=== PATIENT | male | born 1980 | race Caucasian/White ===

== ENCOUNTER 2017-05-07 13:58 | Emergency (ER) | payer MEDICAID ==
[~2017-05-07] VITALS: Ht 185.4 cm; Wt 81.6 kg
--- NOTE | 2017-05-07 14:02 | NUR ---
PT TO ER BED 16. C/O CHEST PAIN S/P TAKING METH. PT APPEARS ANXIOUS. GOWNED AND PLACED ON MONITOR. TACHY OTHERWISE STABLE VITALS. AWAITNIG MD PASCAL.
--- NOTE | 2017-05-07 14:57 | NUR ---
DR MONTEJO AT BEDSIDE FOR EVAL.
[2017-05-07] MEDS ORDERED: LORAZEPAM INJ 2 MG/ML VIAL IV ONE (15:00)
[2017-05-07] MEDS ORDERED: LORAZEPAM INJ 2 MG/ML VIAL ONE (15:17)
--- NOTE | 2017-05-07 15:20 | NUR ---
PT IS REFUSING IV START AND BLOOD DRAW. DR MONTEJO MADE AWARE. PT IS REQUESTING NITRO FOR CHEST PAIN. VERBAL ORDER FOR ATIVAN 2MG IM. CARRIED OUT.
[2017-05-07] MEDS ORDERED: LORAZEPAM INJ 2 MG/ML VIAL IM ONE (16:00)
--- NOTE | 2017-05-07 16:23 | NUR ---
GIOVANY was informed by Vita in ED that pt. is homeless and will require resources. GIOVANY met with pt. bedside. Pt. is alert and oriented x3. Pt. states he is homeless, however he is in process of obtaining [facility] housing voucher. GIOVANY gave pt. homeless resource directory which includes shelters, food jarrett, hot meals and showers, drug treatment programs, transitional housing etc. Pt. accepted resources. KORY Lozada was informed about pt. receiving resources.
--- NOTE | 2017-05-07 17:34 | NUR ---
Patient discharged to home in stable condition. Written and verbal after care instructions given. Patient verbalizes understanding of instruction.
[2017-05-07 17:35] VITALS: BP 136/77
== END 2017-05-07 17:35 | disposition home or self-care (01) ==
LOC: ER 14:01
DX: F15.10 Other stimulant abuse, uncomplicated (principal); F11.10 Opioid abuse, uncomplicated; F14.129 Cocaine abuse with intoxication, unspecified; F17.210 Nicotine dependence, cigarettes, uncomplicated; Z88.0 Allergy status to penicillin; Z88.1 Allergy status to other antibiotic agents
CPT/HCPCS: A4606; J2060; Z7610

== ENCOUNTER 2017-09-01 21:19 | Emergency (ER) | payer MEDICAID, OTHER ==
[~2017-09-01] VITALS: Ht 180.3 cm; Wt 83.5 kg
--- NOTE | 2017-09-01 21:29 | NUR ---
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 PT AOX3 RR EVEN AND UNLABORED. NO SOB NOTED. NAD NOTED. NO NVD AT THIS TIME. PT GOWNED AND PLACED ON MONITOR WAITING FOR MD PASCAL.
--- NOTE | 2017-09-01 22:03 | NUR ---
DR. PICKERING AT BEDSIDE FOR EVAL.
[2017-09-01] MEDS ORDERED: LORAZEPAM INJ 2 MG/ML VIAL IV ONE (22:30)
[2017-09-01] MEDS ORDERED: ASPIRIN 325 MG TABLET PO ONE (22:30)
--- NOTE | 2017-09-01 22:34 | NUR ---
RADIOLOGY AT BEDSIDE FOR XRAY
[2017-09-01] MEDS ORDERED: ASPIRIN 325 MG TABLET ONE (22:43)
[2017-09-01] MEDS ORDERED: LORAZEPAM INJ 2 MG/ML VIAL ONE (22:44)
[2017-09-01 23:02] LABS: BASOPHILS % (AUTO) 0.3 % (0.0-2.0); EOSINOPHILS # (AUTO) 0.2 /CMM (0.0-0.7); EOSINOPHILS % (AUTO) 1.7 % (0.0-6.0); HEMATOCRIT 38 % (39-51); HEMOGLOBIN 12.5 g/dL (13.5-17.5); LYMPHOCYTES # (AUTO) 1.5 /CMM (0.8-4.8); LYMPHOCYTES % (AUTO) 16.8 % (20.0-44.0); MEAN CORPUSCULAR HEMOGLOBIN 27 PG (26.0-33.0); MEAN CORPUSCULAR HGB CONC 33 g/dl (31.0-36.0); MEAN CORPUSCULAR VOLUME 82 fL (80-96); MONOCYTES # (AUTO) 0.9 /CMM (0.1-1.30); MONOCYTES % (AUTO) 9.2 % (2.0-12.0); NEUTROPHILS # (AUTO) 6.6 /CMM (1.8-8.9); PLATELET COUNT (AUTO) 325 /CMM (150-450); RDW COEFFICIENT OF VARIATION 14.8 (11.5-15.0); RED BLOOD CELL COUNT(AUTO) 4.67 MIL/uL (4.5-6.0); WHITE BLOOD COUNT (AUTO) 9.2 K/uL (4.3-11.0)
[2017-09-01 23:11] LABS: CALCIUM, SERUM 8.5 mg/dL (8.5-10.1); CARBON DIOXIDE 33 mmol/L (21-32); CHLORIDE 104 mmol/L (98-107); CREATININE 0.9 mg/dL (0.6-1.3); GLUCOSE 152 mg/dL (74-106); POTASSIUM 3.8 mmol/L (3.5-5.1); SODIUM SERUM 139 mmol/L (136-145); UREA NITROGEN, BLOOD 25 mg/dL (7-18)
[2017-09-01 23:19] LABS: TROPONIN I < 0.017 ng/mL (0.00-0.056)
[2017-09-01 23:23] LABS: INR 0.95 (0.87-1.13); PROTHROMBIN TIME 9.9 SECS (9.5-12.7)
--- NOTE | 2017-09-02 03:49 | NUR ---
PT TRANSFERRED TO ER BED 10. PT APPEARS COMFORTABLE.
--- NOTE | 2017-09-02 04:04 | NUR ---
Patient is resting comfortably in bed with eyes closed. Easily aroused. VSS
[2017-09-02 04:29] VITALS: BP 125/75
--- NOTE | 2017-09-02 04:29 | NUR ---
IV removed. Catheter intact and site benign. Pressure and 4x4 applied to site. No bleeding noted.
--- NOTE | 2017-09-02 04:29 | NUR ---
Patient discharged to home in stable condition. Written and verbal after care instructions given. Patient verbalizes understanding of instruction.
== END 2017-09-02 04:31 | disposition home or self-care (01) ==
LOC: ER 21:21
DX: R07.2 Precordial pain (principal); F19.10 Other psychoactive substance abuse, uncomplicated; F17.200 Nicotine dependence, unspecified, uncomplicated; F10.10 Alcohol abuse, uncomplicated; F11.10 Opioid abuse, uncomplicated; F12.10 Cannabis abuse, uncomplicated; Z88.0 Allergy status to penicillin; Z79.82 Long term (current) use of aspirin; Z88.1 Allergy status to other antibiotic agents
CPT/HCPCS: 36415; 71010-TC; 80048-TC; 84484-TC; 85025-TC; 85730-TC; A4606; J2060; Z7610

== ENCOUNTER 2017-12-05 19:24 | Inpatient (IN) | payer OTHER ==
[~2017-12-05] VITALS: Ht 185.4 cm; Wt 80.3 kg
--- NOTE | 2017-12-05 19:39 | NUR ---
PT BB SELF FROM STREETS C/O OF R ARM PAIN X1 DAY. PT STATES HE IS A HEROIN USER AND INJECTS HIMSELF WITH HEROIN. PT STATES LAST TIME USED WAS AT 1500. REDNESS/SWELLIING NOTED OF THE R FOREARM. R FOREARM SKIN HOT AND HARD TO TOUCH. PT IS AAOX4. RESP EVEN AND UNLABORED. NO S/S OF ACUTE DISTRESS NOTED. PT IS PLACED ON MONITOR AND POX. AWAITING MD FOR EVAL.
[2017-12-05] MEDS ORDERED: VANCOMYCIN 1 GM in IV D5W 250 ML IV ONE (20:00)
[2017-12-05] MEDS ORDERED: CEFEPIME 1 GM in IV D5W 50 ML IV ONE (20:00)
--- NOTE | 2017-12-05 20:02 | NUR ---
URINE SENT TO LAB
[2017-12-05] MEDS ORDERED: CEFEPIME 1 GM VIAL ONE (20:24)
[2017-12-05] MEDS ORDERED: VANCOMYCIN 1 GM VIAL ONE (20:24)
[2017-12-05 20:39] LABS: CALCIUM, SERUM 8.3 mg/dL (8.5-10.1); CREATININE 0.7 mg/dL (0.6-1.3); POTASSIUM 3.9 mmol/L (3.5-5.1)
[2017-12-05 20:42] LABS: INR 0.99 (0.85-1.15)
[2017-12-05 21:05] LABS: BASOPHILS % (AUTO) 0.1 % (0.0-2.0); HEMATOCRIT 31 % (39-51); HEMOGLOBIN 10.7 g/dL (13.5-17.5); LYMPHOCYTES # (AUTO) 1.4 /CMM (0.8-4.8); LYMPHOCYTES % (AUTO) 6.3 % (20.0-44.0); MEAN CORPUSCULAR HGB CONC 35 g/dl (31.0-36.0); MEAN CORPUSCULAR VOLUME 80 fL (80-96); MONOCYTES # (AUTO) 1.6 /CMM (0.1-1.30); MONOCYTES % (AUTO) 7.6 % (2.0-12.0); NEUTROPHILS # (AUTO) 18.4 /CMM (1.8-8.9); PLATELET COUNT (AUTO) 314 /CMM (150-450); RDW COEFFICIENT OF VARIATION 15.9 (11.5-15.0); RED BLOOD CELL COUNT(AUTO) 3.86 MIL/uL (4.5-6.0); WHITE BLOOD COUNT (AUTO) 21.7 K/uL (4.3-11.0)
[2017-12-05] MEDS ORDERED: IV NS 0.9% 1,000 ML BAG IV ONE (21:30)
--- NOTE | 2017-12-05 21:40 | NUR ---
REPORT GIVEN TO SHELL CALLAWAYELIA FOR BHUMIKA.
[2017-12-05] MEDS ORDERED: LIDOCAINE 1%-EPI 1:100,000 20 ML VIAL ONE (21:55)
--- NOTE | 2017-12-05 22:00 | NUR ---
CATHERINE HOUGH BEDSIDE FOR I&D PROCEDURE.
[2017-12-05 23:00] VITALS: BP 112/66
--- NOTE | 2017-12-05 23:00 | NUR ---
MS RN NOTES ADMITTED THIS 38 YO MALE FROM ER PER SHERRI A/O X4,AMBULATORY,WITH CHIEF COMPLAINTS OF SWELLING OF RIGHT ARM DUE TO HEROIN INJECTION,SALINE LOCK LEFT HAND INTACT AND PATENT.RIGHT ARM ABCESS SITE WITH PACKING NOTED.ELEVATED ON PILLOWS.TO INFUSE 2400MLOF SALINE ORDERED IN ER.CALL LIGHT IN REACH,NEEDS ANTICIPATED.
--- NOTE | 2017-12-05 23:15 | NUR ---
MS RN NOTES WENT TO SMOKE ACCOMPANIED BY MARKETING BUDGET ANALYST IMMACULATE.WAVER SIGNED BY PATIENT.
[2017-12-05] MEDS ORDERED: MAGNESIUM HYDROXIDE 30 ML UDC PO PRN (23:30)
[2017-12-05] MEDS ORDERED: ACETAMINOPHEN 325 MG TABLET PO PRN (23:30)
[2017-12-05] MEDS ORDERED: ZOLPIDEM TARTRATE 5 MG TABLET PO PRN (23:30)
[2017-12-05] MEDS ORDERED: ONDANSETRON HCL/PF 4 MG/2 ML VIAL IVP PRN (23:30)
--- NOTE | 2017-12-06 | NUR ---
MS RN NOTES STARTED ON LEVAQUIN 500MG IV ORDERED
[2017-12-06] MEDS ORDERED: LEVOFLOXACIN 500 MG /D5W 100ML 100 ML IV ONE (00:03)
[2017-12-06] MEDS: LEVOFLOXACIN 500 MG /D5W 100ML 500 MG in PREMIX 1 EA IV SCH (00:08)
--- NOTE | 2017-12-06 03:00 | NUR ---
MS RN NOTES IV SITE INFILTRATED.NEW SALINE LOCK PLACE ON LEFT WRIST #22,IV BOLUS IN PROGRESS.
[2017-12-06] MEDS ORDERED: VANCOMYCIN 1 GM in IV D5W 250 ML IV ONE (05:00)
[2017-12-06 06:43] LABS: BASOPHILS # (AUTO) 0.1 /CMM (0.0-0.2); BASOPHILS % (AUTO) 0.4 % (0.0-2.0); EOSINOPHILS % (AUTO) 1.6 % (0.0-6.0); HEMATOCRIT 28 % (39-51); HEMOGLOBIN 9.6 g/dL (13.5-17.5); LYMPHOCYTES # (AUTO) 1.3 /CMM (0.8-4.8); LYMPHOCYTES % (AUTO) 8.3 % (20.0-44.0); MEAN CORPUSCULAR HGB CONC 34 g/dl (31.0-36.0); MEAN CORPUSCULAR VOLUME 82 fL (80-96); MONOCYTES # (AUTO) 1.5 /CMM (0.1-1.30); MONOCYTES % (AUTO) 9.5 % (2.0-12.0); NEUTROPHILS # (AUTO) 12.8 /CMM (1.8-8.9); NEUTROPHILS % (AUTO) 80.2 % (43.0-81.0); PLATELET COUNT (AUTO) 269 /CMM (150-450); RDW COEFFICIENT OF VARIATION 15.9 (11.5-15.0); RED BLOOD CELL COUNT(AUTO) 3.47 MIL/uL (4.5-6.0)
[2017-12-06 06:49] LABS: ALBUMIN 2.3 g/dL (3.4-5.0); BILIRUBIN,TOTAL 0.4 mg/dL (0.2-1.0); CALCIUM, SERUM 8.7 mg/dL (8.5-10.1); MAGNESIUM 3.7 mg/dL (1.8-2.4); PHOSPHORUS 3.4 mg/dL (2.5-4.9); POTASSIUM 3.8 mmol/L (3.5-5.1); TOTAL PROTEIN, SERUM 5.4 g/dL (6.4-8.2)
[2017-12-06 07:00] LABS: CREATININE 0.6 mg/dL (0.6-1.3)
[2017-12-06 07:07] LABS: THYROID STIMULATING HORMONE 0.609 uIU/mL (0.358-3.74)
--- NOTE | 2017-12-06 07:16 | NUR ---
MS RN NOTES COMPLETED 2LITERS OF NS,INFUSING ANOTHER 400ML TO COMPLETE 2400ML ORDERED IN ER.SLEPT WELL,SNACKS PROVIDED.IN NO ACUTE DISTRESS.ENDORSE TO FABIAN,DAY SHIFT NURSE FOR BHUMIKA.
--- NOTE | 2017-12-06 07:21 | NUR ---
MS RN NOTES RECEIVED PATIENT ASLEEP IN BED, EASILY AWAKENS. ON ROOM AIR, BREATHING EVEN AND UNLABORED. IV ACCESS ON LEFT WRIST INTACT AND PATENT WITH IVF OF 400ML BOLUS OF NS INFUSING WELL, NO SIGNS OF INFILTRATION NOTED. HOB ELEVATED. BED LOCKED AND IN LOW POSITION. CALL LIGHT WITHIN REACH. WILL CONTINUE TO MONITOR.
[2017-12-06] MEDS ORDERED: FEE PK DOSING 1 MIN EA MC ONE (07:34)
[2017-12-06] MEDS ORDERED: HYDR-548 PO (07:51)
[2017-12-06] MEDS ORDERED: HYDR4TAB4 PO (07:51)
[2017-12-06 08:00] VITALS: BP 105/59
[2017-12-06] MEDS: IV NS 0.9% 1,000 ML IV PRN (08:07)
[2017-12-06] MEDS: VANCOMYCIN 1.25 GM in IV D5W 500 ML IV SCH ×2 (09:12→16:16)
--- NOTE | 2017-12-06 11:26 | NUR ---
RN NOTES PAUL REYNOLDS ASSESS AND EVALUATED PT'S ABSCESS ON RIGHT ARM, SAME DID DRESSING ON IT. WILL CONTINUE TO MONITOR.
--- NOTE | 2017-12-06 14:10 | NUR ---
Social service consult requested by gearcase assembler Dana for homelessness. Pt. is a 37 year old male who was admitted to [facility] for cellulitis. GIOVANY met with pt. bedside. Pt. is alert and oriented x 4. Pt. was pleasant and cooperative with SW during the assessment. Pt. states he has been homeless as of yesterday. Pt. was residing at the [facility] in [place]. Pt. receives approximately $1000/ month in [place] benefits. Pt. is unsure as to what prison or where he wants to go upon discharge. SW to offer pt. homeless resources etc prior to discharge. Pt. has a brother Juan Kumar who lives in [place] and who is his emergency contact . Pt. denies using alcohol but is a drug user. Pt. uses heroin and cocaine frequently. Pt. last used heroin and cocaine yesterday. Pt. has been using drugs for the past 5 to 6 years. Pt. states he suffers from PTSD. Pt. last attended a drug treatment program last year in [place], [place]. Pt. is currently on no medications at this time. Pt. denies suicidal and homicidal ideations and visual/auditory hallucinations at this time. No other social service needs are requested at this time. SW is available if needed. Addendum: 12/06/17 at 1424 by GEOVANNA ADAIR Pt. is a cigarette smoker. GIOVANY gave pt. the following resources: Homeless prison resources which included [facility] , [facility] , [facility] ([phone] etc; List of food resources, sober livings, list of mental health and medical clinics and drug treatment programs. Pt. will require bus tokens upon discharge. band manager Dana was updated regarding pt's discharge plan.
[2017-12-06 16:00] VITALS: BP 103/54
[2017-12-06] MEDS: HYDROMORPHONE INJ 2 MG/ML DISP.SYRIN IV PRN ×2 (17:27→21:33)
--- NOTE | 2017-12-06 17:31 | NUR ---
RN NOTES PT C/O BURNING AND SHARP PAIN ON HIS RIGHT ARM ABSCESS WITH INTENSITY OF 10/10, PRN DILAUDID 2MG IVP GIVEN. WILL CONTINUE TO MONITOR.
--- NOTE | 2017-12-06 18:32 | NUR ---
MS RN CLOSING NOTES PATIENT AWAKE AND RESTING AT MODERATE HIGH BACKREST POSITION WATCHING TV. A/O X 4. AMBULATORY AND VERBALLY RESPONSIVE. ON ROOM AIR, BREATHING EVEN AND UNLABORED. DRESSING ON RIGHT ARM INTACT, DRY AND CLEAN. RIGHT ARM KEPT ELEVATED WITH PILLOWS. IV ACCESS ON LEFT WRIST INTACT AND PATENT WITH IVF OF NS @ 75 ML/HR INFUSING WELL, NO SIGNS OF INFILTRATION NOTED. BED LOCKED AND IN LOW POSITION. CALL LIGHT AND BEDSIDE TABLE KEPT WITHIN PT REACH. ALL NEEDS AND CARE ATTENDED WELL. WILL CONTINUE TO MONITOR.
[2017-12-06 20:00] VITALS: BP 110/50
[2017-12-07] MEDS: LEVOFLOXACIN 500 MG /D5W 100ML 500 MG in PREMIX 1 EA IV SCH (00:28)
[2017-12-07] MEDS: HYDROCODONE/APAP 10/325MG 1 EA TABLET PO PRN (00:34)
--- NOTE | 2017-12-07 01:52 | NUR ---
MS2/RN PATIENT IS SLEEPING AT THIS TIME, EASILY AROUSABLE, APPEAR COMFORTABLE, NO SIGNS OF DISTRESS NOTED, CALL LIGHT IN REACH. WILL CONTINUE TO MONITOR.
[2017-12-07] MEDS: VANCOMYCIN 1.25 GM in IV D5W 500 ML IV SCH ×3 (02:09→16:21)
[2017-12-07] MEDS: HYDROMORPHONE INJ 2 MG/ML DISP.SYRIN IV PRN ×3 (05:10→16:22)
--- NOTE | 2017-12-07 07:04 | NUR ---
MS2/RN PATIENT IS SLEEPING, AROUSABLE, APPEAR COMFORTABLE, NO SIGNS OF DISTRESS NOTED, ALL NEEDS ATTENDED AT THIS TIME. ENDORSED.
--- NOTE | 2017-12-07 07:26 | NUR ---
MS RN OPENING NOTES RECEIVED PATIENT AWAKE, ALERT AND ORIENTED X4, SAME ABLE TO MAKE NEEDS KNOWN WITH NO C/O PAIN OR DISCOMFORTS AT THIS TIME. PT ON ROOM AIR, BREATHING EVEN AND UNLABORED. DRESSING ON RIGHT ARM INTACT, DRY AND CLEAN. REMINDED PT TO KEEP RIGHTB ARM ELEVATED WITH PILLOWS. IV ACCESS ON LEFT WRIST INTACT AND PATENT WITH IVF OF NS @ 75ML/HR INFUSING WELL, NO SIGNS OF INFILTRATION NOTED. HOB ELEVATED. BED LOCKED AND IN LOW POSITION. CALL LIGHT WITHIN REACH. WILL CONTINUE TO MONITOR.
[2017-12-07 08:00] VITALS: BP 103/65
--- NOTE | 2017-12-07 08:56 | NUR ---
RN NOTES FOLLOWED-UP ON LAB FOR VANCO TROUGH LEVEL AND SAID THAT IT WASN'T DRAWN YET. i SAID THAT IT'S SUPPOSED TO BE DRAWN AT 0700 AND PT HAS ABX VANCO IV AT 0800. CERAMIC PLATER SAID THAT SOMEBODY WILL COME AND DRAW THE BLOOD NOW.
[2017-12-07 09:54] LABS: CALCIUM, SERUM 8.4 mg/dL (8.5-10.1); CREATININE 0.7 mg/dL (0.6-1.3); POTASSIUM 3.7 mmol/L (3.5-5.1)
[2017-12-07] MEDS: IV NS 0.9% 1,000 ML IV PRN (11:34)
--- NOTE | 2017-12-07 11:55 | NUR ---
RN NOTES PATIENT WITH DRESSING INTACT, CLEAN AND DRY ON RIGHT ARM. REFUSED WOUND CARE TX THIS MORNING, HE SAID THAT HE WILL ASK THE NEXT SHIFT NURSE TO DO IT. WILL ENDORSED
[2017-12-07 13:13] LABS: BASOPHILS # (AUTO) 0.1 /CMM (0.0-0.2); BASOPHILS % (AUTO) 0.5 % (0.0-2.0); EOSINOPHILS % (AUTO) 2.8 % (0.0-6.0); HEMATOCRIT 33 % (39-51); HEMOGLOBIN 10.6 g/dL (13.5-17.5); LYMPHOCYTES # (AUTO) 1.3 /CMM (0.8-4.8); LYMPHOCYTES % (AUTO) 11.8 % (20.0-44.0); MEAN CORPUSCULAR HGB CONC 33 g/dl (31.0-36.0); MEAN CORPUSCULAR VOLUME 82 fL (80-96); MONOCYTES # (AUTO) 0.7 /CMM (0.1-1.30); MONOCYTES % (AUTO) 6.2 % (2.0-12.0); NEUTROPHILS # (AUTO) 8.9 /CMM (1.8-8.9); NEUTROPHILS % (AUTO) 78.7 % (43.0-81.0); PLATELET COUNT (AUTO) 171 /CMM (150-450); RDW COEFFICIENT OF VARIATION 16.2 (11.5-15.0); RED BLOOD CELL COUNT(AUTO) 3.96 MIL/uL (4.5-6.0); WHITE BLOOD COUNT (AUTO) 11.3 K/uL (4.3-11.0)
[2017-12-07 15:53] VITALS: BP 114/61
[2017-12-07] MEDS: LACTOBACILLUS RHAMNOSUS GG 1 EACH CAP.SPRINK PO SCH (16:21)
--- NOTE | 2017-12-07 19:20 | NUR ---
MS RN CLOSING NOTES PATIENT ASLEEP IN BED AT THIS TIME, AWAKENS EASILY. ALL NEEDS AND CARE ATTENDED WELL. PT TOLERATING ROOM AIR BREATHING WITH NO ACUTE RESPIRATORY DISTRESS NOTED. DRESSING ON RIGHT ARM INTACT, DRY AND CLEAN. RIGHT ARM KEPT ELEVATED WITH PILLOWS. IV ACCESS ON LEFT FA INTACT AND PATENT WITH IVF OF NS @ 75 ML/HR INFUSING WELL, NO SIGNS OF INFILTRATION NOTED. BED LOCKED AND IN LOW POSITION. CALL LIGHT AND BEDSIDE TABLE KEPT WITHIN PT REACH. ALL DUE MEDS GIVEN ORDERED AND TOLERATED. ALL NEEDS AND CARE ATTENDED WELL. ENDORSED TO OPERATIONS CHIEF NURSE TO CONTINUE CARE.
[2017-12-07 20:00] VITALS: BP 115/71
--- NOTE | 2017-12-07 20:10 | NUR ---
MS RN NOTES RECEIVED OUT OF THE ROOM,WENT DOWN TO SMOKE,SALINE LOCK LFA INTACT AND PATENT,NS AT 75ML/HR RATE INFUSING.RIGHT ARM REMAINS SWOLLEN,DRESSING INTACT AND DRY.AMBULATORY.CALL LIGHT IN REACH,NEEDS ANTICIPATED.
--- NOTE | 2017-12-07 21:00 | NUR ---
MS RN NOTES WENT DOWN TO SMOKE ACCOMPANIED BY ANDREA RAMOS.
--- NOTE | 2017-12-07 21:30 | NUR ---
MS RN NOTES TOOK SHOWER AFTER SMOKING,CLAIMED HE'S STINK
--- NOTE | 2017-12-07 22:00 | NUR ---
MS RN NOTES REFUSED IVF THIS TIME.CLAIMED HES BEEN EATING AND DRINKING A LOT
[2017-12-08] MEDS: VANCOMYCIN 1.25 GM in IV D5W 500 ML IV SCH ×2 (00:07→08:25)
--- NOTE | 2017-12-08 02:00 | NUR ---
MS RN NOTES IV INFILTRATED,NEW SALINE LOCK #22 PLACE ON THE RIGHT FOOT WITH ORDER.
[2017-12-08] MEDS: HYDROMORPHONE INJ 2 MG/ML DISP.SYRIN IV PRN (05:32)
--- NOTE | 2017-12-08 05:32 | NUR ---
MS RN NOTES PAIN MANAGEMENT C/O PAIN 10/10 ON RIGHT ARM.DILAUDID 2MG IVP GIVEN ORDERED FOR SEVERE PAIN
[2017-12-08 06:18] LABS: CALCIUM, SERUM 8.9 mg/dL (8.5-10.1); CREATININE 0.7 mg/dL (0.6-1.3); POTASSIUM 3.8 mmol/L (3.5-5.1)
--- NOTE | 2017-12-08 06:22 | NUR ---
MS RN NOTES RIGHT ARM LESS SWOLLEN THIS TIME,CONTINUE TO ELEVATE ON PILLOWS.SALINE LOCK RIGHT FOOT REMAINS INTACT.STILL REFUSING IVF FLUIDS.IV ABX TOLERATED WELL.IN NO ACUTE DISTRESS.WILL ENDORSE TO DAY NURSE FOR BHUMIKA.
[2017-12-08 08:00] VITALS: BP 100/53
--- NOTE | 2017-12-08 08:02 | NUR ---
MS RN OPENING NOTE PATIENT ASLEEP AT THIS TIME, RESTING COMFORTABLY. EASY TO AROUSE. ABLE TO COMMUNICATE NEEDS. NO FACIAL GRIMACING NOTED FOR PAIN. NO SOB OR DISTRESS NOTED, ON ROOM AIR TOLERATING WELL. CALL LIGHT WITHIN REACH. SAFETY MEASURES IMPLEMENTED. WOUND TREATMENT TO BE DONE ON RIGHT ARM. IV INTACT AND PATENT NO REDNESS OR SWELLING NOTED. WILL CONTINUE TO MONITOR THROUGHOUT SHIFT
[2017-12-08] MEDS: LACTOBACILLUS RHAMNOSUS GG 1 EACH CAP.SPRINK PO SCH (08:25)
[2017-12-08] MEDS: HYDROCODONE/APAP 10/325MG 1 EA TABLET PO PRN (10:39)
--- NOTE | 2017-12-08 13:31 | NUR ---
DISCHARGE NOTE PATIENT IS ALERT AND ORIENTED X4. NO PAIN AT THIS TIME. NO SOB OR DISTRESS NOTED. CALL LIGHT WITHIN REACH AT ALL TIMES. SAFETY MEASURES IMPLEMENTED. ABLE TO COMMUNICATE NEEDS. ALL DUE MEDICATIONS GIVEN ORDERED. ALL NURSING CARE NEEDS ATTENDED TO. PRESCRIPTION GIVEN TO PATIENT FOR ANTIBIOTICS, EXPLAINED RISKS AND BENEFITS OF MEDICATION. ALL DISCHARGE INSTRUCTIONS GIVEN TO PATIENT AND EX-, PATIENT AND EX- BOTH ABLE TO RETURN INSTRUCTIONS. ALL BELONGINGS ACCOUNTED FOR AND WITH PATIENT AT DISCHARGE. IV REMOVED, SKIN INTACT. WOUND PICTURE TAKEN AND PLACED IN CHART. WOUND TREATMENT DONE PRIOR TO DISCHARGE. LEFT WITH FRIEND VIA PRIVATE CAR.
[2017-12-12 13:25] LABS: *HIV-1 RNA BY PCR <20 copies/mL (.)
== END 2017-12-08 13:30 | disposition home or self-care (01) | DRG 720 ==
LOC: ER 19:32 → MEDSG2 21:33
PROVIDERS: ADMIT Nurse Practitioner Acute Care; ATTEND Nurse Practitioner Acute Care
PROC: 0JBG0ZZ Excision of Right Lower Arm Subcutaneous Tissue and Fascia, Open Approach (ICD-10-PCS; principal; 2017-12-05)
DX: A41.9 Sepsis, unspecified organism (principal); E46 Unspecified protein-calorie malnutrition; E87.1 Hypo-osmolality and hyponatremia; E88.09 Other disorders of plasma-protein metabolism, not elsewhere classified; L03.113 Cellulitis of right upper limb; L02.413 Cutaneous abscess of right upper limb; D63.8 Anemia in other chronic diseases classified elsewhere; F17.210 Nicotine dependence, cigarettes, uncomplicated; Z59.0 Homelessness; Z68.23 Body mass index [BMI] 23.0-23.9, adult; F11.90 Opioid use, unspecified, uncomplicated; F19.10 Other psychoactive substance abuse, uncomplicated
CPT/HCPCS: 36415; 80048-TC; 80053-TC; 80061-TC; 80202-TC; 83605-TC; 83735-TC; 84100-TC; 84443-TC; 85025-TC; 85730-TC; 87040-TC; 87070-TC; 87081-TC; 87536; 93307-TC; A4216; A4606; A6402; A6403; A6407; J0692; J1170; J1956; J3370; J3490; J7030; J7040; J7060; Z7610

== ENCOUNTER 2018-01-17 03:29 | Emergency (ER) | payer OTHER ==
[~2018-01-17] VITALS: Ht 185.4 cm; Wt 83.9 kg
[~2018-01-17 03:29] MED LIST: HYDR-548 PO; HYDR4TAB4 PO
[2018-01-17 04:48] VITALS: BP 143/82
--- NOTE | 2018-01-17 05:58 | NUR ---
PT NOT IN ROOM. PT'S NAME CALLED 3 TIMES AND NO RESPONSE.
--- NOTE | 2018-01-17 06:06 | NUR ---
Patient eloped from facility. PT left without being seen by ER physician. ER MD notified.
== END 2018-01-17 06:07 | disposition home or self-care (01) ==
LOC: ER 03:31
DX: Z53.21 Procedure and treatment not carried out due to patient leaving prior to being seen by health care provider (principal); R07.9 Chest pain, unspecified
CPT/HCPCS: A4606; Z7610

== ENCOUNTER 2018-11-28 19:59 | Emergency (ER) | payer SELFPAY ==
[~2018-11-28] VITALS: Ht 185.4 cm; Wt 83.9 kg
[~2018-11-28 19:59] MED LIST changes: +HYDR-4354 PO; -HYDR-548 PO
--- NOTE | 2018-11-28 20:05 | NUR ---
PT BIBLAPD IN CUSTODY, COMPLAINING OF L UPPER ARM AND L LOWER LEG PAIN X 10 DAYS. PT AXO4. RESPIRATIONS EVEN AND UNLABORED. ABCESS NOTED ON L UPPER ARM AND L LOWER LEG W/ SWELLING AN PAIN. PT HAS SMALL ABRASSION AND SCABS ALL OVER ARMS. PT PUT ON THE DOCUMENTATION SPECIALIST AND PULSE OX. PENDING EVAL FROM ER .
--- NOTE | 2018-11-28 20:19 | NUR ---
HOUSE SUP CALLED FOR MS BED Addendum: 11/28/18 at 2126 by BLANCA VENUE MANAGER NUMBER [phone]. SPOKE TO OFFICER SABRINA WHEN SHE CALLED BACK TO INFORM HER PT WAS LEAVING
--- NOTE | 2018-11-28 20:22 | NUR ---
MS BED 206-2 GIVEN
[2018-11-28] MEDS ORDERED: VANCOMYCIN 1 GM in IV D5W 250 ML IV ONE (20:30)
[2018-11-28] MEDS ORDERED: IV NS 0.9% 1,000 ML BAG IV ONE (20:30)
[2018-11-28] MEDS ORDERED: LIDOCAINE 1%-EPI 1:100,000 20 ML VIAL ONE (20:33)
[2018-11-28] MEDS ORDERED: VANCOMYCIN 1 GM VIAL ONE (20:33)
--- NOTE | 2018-11-28 21:25 | NUR ---
CALLED THE THERAPIST RRT AND LEFT A MESSAGE THAT THE PT WANTS TO LEAVE AMA TO GO TO HIS CAR
--- NOTE | 2018-11-28 21:35 | NUR ---
IV removed. Catheter intact and site benign. Pressure and 4x4 applied to site. No bleeding noted.
--- NOTE | 2018-11-28 21:37 | NUR ---
Patient does not wish to proceed with medical care recommended by PAUL UKMAR. Patient given information related to possible complications, up to and including , which could occur as a result of leaving the hospital at this time. Patient verbalizes understanding of risks involved due to leaving against medical advice. Patient has signed AMA form.
[2018-11-28 22:35] VITALS: BP 140/78
== END 2018-11-28 22:37 | disposition left against medical advice (07) ==
LOC: ER 20:01
DX: L03.114 Cellulitis of left upper limb (principal); L02.414 Cutaneous abscess of left upper limb; F17.200 Nicotine dependence, unspecified, uncomplicated; Z88.0 Allergy status to penicillin; Z88.1 Allergy status to other antibiotic agents; Z79.899 Other long term (current) drug therapy
CPT/HCPCS: 71045; 99283; A6402; A6403; A6407; J3490; J3370; J7030

== ENCOUNTER 2018-12-19 01:30 | Inpatient (IN) | payer MEDICAID ==
[~2018-12-19] VITALS: Ht 185.4 cm; Wt 85.7 kg
--- NOTE | 2018-12-19 01:45 | NUR ---
PT BIBS. C/O "ABSCESS ON ARMS GETTING WORSE AND NOT HEALING" -SOB NOTED. ABSCESS NOTED ON MULTIPLE SITES ACROSS BODY. -N/V AOX4. -DIZZY,
--- NOTE | 2018-12-19 02:03 | NUR ---
ATTEMPTED TO CALL BACK PT BUT NO ANSWER.
--- NOTE | 2018-12-19 02:57 | NUR ---
ATTEMPTED TO CALL BACK PT BUT STILL NO ANSWER.
[2018-12-19] MEDS ORDERED: VANCOMYCIN 1 GM in IV D5W 250 ML IV ONE (04:30)
[2018-12-19] MEDS ORDERED: MEROPENEM 1,000 MG in IV NS 0.9% 100 ML IV ONE (04:30)
--- NOTE | 2018-12-19 04:50 | NUR ---
pt assigned to rm 200 ms
[2018-12-19 05:23] LABS: BASOPHILS # (AUTO) 0.1 /CMM (0.0-0.2); BASOPHILS % (AUTO) 0.2 % (0.0-2.0); EOSINOPHILS % (AUTO) 0.2 % (0.0-6.0); HEMATOCRIT 32 % (39-51); HEMOGLOBIN 10.1 g/dL (13.5-17.5); LYMPHOCYTES # (AUTO) 1.5 /CMM (0.8-4.8); LYMPHOCYTES % (AUTO) 6.3 % (20.0-44.0); MEAN CORPUSCULAR HGB CONC 32 g/dl (31.0-36.0); MEAN CORPUSCULAR VOLUME 75 fL (80-96); MONOCYTES # (AUTO) 1.7 /CMM (0.1-1.30); NEUTROPHILS % (AUTO) 86.3 % (43.0-81.0); PLATELET COUNT (AUTO) 539 /CMM (150-450); RED BLOOD CELL COUNT(AUTO) 4.25 MIL/uL (4.5-6.0); WHITE BLOOD COUNT (AUTO) 24.3 K/uL (4.3-11.0)
--- NOTE | 2018-12-19 05:25 | NUR ---
US AT BEDSIDE.
[2018-12-19 05:31] LABS: CALCIUM, SERUM 8.3 mg/dL (8.5-10.1); CREATININE 1.7 mg/dL (0.6-1.3); POTASSIUM 3.1 mmol/L (3.5-5.1)
[2018-12-19] MEDS ORDERED: MEROPENEM 1 G VIAL IV ONE (05:35)
[2018-12-19] MEDS ORDERED: VANCOMYCIN 1 GM VIAL ONE (05:36)
[2018-12-19 06:46] VITALS: BP 113/62
[2018-12-19] MEDS: IV NS 0.9% 1,000 ML IV PRN (06:49)
[2018-12-19] MEDS ORDERED: Z GUARD REMEDY 2 OZ OINT TP PRN (07:00)
[2018-12-19] MEDS ORDERED: HYDROCODONE/APAP 5/325MG 1 EACH TABLET PO PRN (07:00)
[2018-12-19] MEDS ORDERED: ONDANSETRON HCL/PF 4 MG/2 ML VIAL IVP PRN (07:00)
[2018-12-19] MEDS ORDERED: MAGNESIUM HYDROXIDE 30 ML UDC PO PRN (07:00)
[2018-12-19] MEDS ORDERED: ZOLPIDEM TARTRATE 5 MG TABLET PO PRN (07:00)
[2018-12-19] MEDS ORDERED: ACETAMINOPHEN 325 MG TABLET PO PRN (07:00)
--- NOTE | 2018-12-19 07:00 | NUR ---
RECEIVE PT AT 0645 VIA SHERRI FROM E.R WITH 1 RN AND 1 EMT, ADMIT TO MED SURG, A/O X 3, RESPIRATIONS NOTED AND UNLABORED. KEPT COMFORTABLE. VS STABLE. ENDORSE TO NEXT ADMISSION NURSE.
--- NOTE | 2018-12-19 07:09 | NUR ---
atbx started in er. nurse on floor aware and will continue infusions.
--- NOTE | 2018-12-19 07:25 | NUR ---
MS/RN OPENING NOTE PATIENT IN BED IN STABLE CONDITION. A/O X 4. NO SIGNS OF ACUTE DISTRESS. NO COMPLAIN OF PAIN OR DISCOMFORT. ALL NEEDS ATTENDED TO AT THIS TIME. CALL LIGHT WITHIN REACH. WILL CONTINUE TO MONITOR TO ENSURE SAFETY.
[2018-12-19 08:38] VITALS: BP 113/62
--- NOTE | 2018-12-19 09:04 | NUR ---
MS/RN PER PATIENT, HE IS NOT ALLERGIC TO PCN OR ERYTHROMYCIN AND HAS TAKEN PREVIOUSLY AND DIDN'T HAD ANY REACTION. DC ALLERGIES TO PCN AND ERYTHROMYCIN WITNESSED BY NURSE NUNN. AWARE. PHARM. AWARE.
--- NOTE | 2018-12-19 10:30 | NUR ---
WOUND CARE CONSULT WOUND CARE RECEIVED CONSULT FOR WOUNDS. WOUND CARE WILL DEFER CONSULT AND TREATMENT PLANS TO PLASTIC SURGICAL TEAM. WOUND CARE HAS NOTIFIED PLASTIC SURGICAL TEAM FOR CONSULT FOR THIS PATIENT. PATIENT WITH CHIKA AT 19, WOUND CARE WILL SEE PRN.
[2018-12-19] MEDS ORDERED: POTASSIUM CHLORIDE 10 MEQ TABLET.SA PO ONE (11:00)
--- NOTE | 2018-12-19 12:24 | NUR ---
Social service consult requested by PAUL Reddy for homelessness. Pt. is a 38 year old male who was admitted to [facility] for abscess and cellulitis. SW met with pt. bedside. Pt. is alert and oriented x 4. Initially pt. said he resides with his brother at [address] in [place]. After a few minutes into the assessment pt. disclosed that he is actually homeless and lives in his car. Pt. states his mail goes to his brother's address which is mentioned above. Pt. has been living in his car since February 2018. Prior to living in his car, pt. was residing with his brother. Pt. states he talks to his brother regularly. Pt's mother is visiting him from [place] and urged pt. to come to the ER yesterday. Pt's mother accompanied him to the ED. Pt. wants his mother on the face sheet as well as an emergency contact. Mother' s cellphone number , home number . Pt. is a heroin user and uses 2 to 3 times per day. Pt. has been using heroin for approximately 7 years. Prior to using heroin, pt. was using OxyContin. Pt. has been to several treatment programs in the past with the most recent one, a year and a half ago in [facility]. Pt. is contemplating on attending another program. SW did give pt.substance abuse program referrals. Pt. declined wanting to go to emergency longterm in [facility]. Pt. accepted homeless longterm resources, food jarrett, hot showers, and homeless directory from [facility]. SW encouraged pt. to attend a drug treatment program. Homeless Patient Waiver will be signed by pt. upon discharge.
[2018-12-19] MEDS ORDERED: FEE PK DOSING 1 MIN EA MC ONE (12:29)
--- NOTE | 2018-12-19 12:32 | NUR ---
MS/RN SEEN BY DR DO AND NOTIFIED PATIENT HARD STICK FOR PIV INSERTION AND LEFT IJ IV SITE NOT WORKING PROPERLY IF OKAY TO GET MID LINE INSERTION ORDER. PER DR HI FREY FOR MID LINE INSERTION. NURSING SUP. RADHA NOTIFIED.
--- NOTE | 2018-12-19 12:36 | NUR ---
MS/RN SEEN BY DR GRIFFITH WITH ORDERS FOR WOUND CX TO LEFT LEG AND LEFT ARM WOUND.
[2018-12-19] MEDS ORDERED: MEROPENEM 1 G in IV NS 0.9% 100 ML IV SCH ×4 (13:00)
[2018-12-19] MEDS ORDERED: MEROPENEM 500 MG in IV NS 0.9% 50 ML IV SCH (13:00)
[2018-12-19 15:58] VITALS: BP 113/51
[2018-12-19] MEDS: VANCOMYCIN 1.25 GM in IV D5W 500 ML IV SCH (16:59)
[2018-12-19] MEDS ORDERED: SILVER NITRATE APPLICATOR 1 EA BOX TP ONE (17:00)
[2018-12-19] MEDS ORDERED: LIDOCAINE 2%-EPI 1:100,000 30 ML VIAL TP ONE (17:00)
[2018-12-19] MEDS: NICOTINE PATCH (7MG) 7 MG PATCH.TD24 TD SCH (18:44)
--- NOTE | 2018-12-19 18:48 | NUR ---
MS/RN CLOSING NOTE PATIENT IN BED IN STABLE CONDITION. A/O X 3. NO SIGNS OF ACUTE DISTRESS. NO COMPLAIN OF PAIN OR DISCOMFORT. PATIENT PULLED OUT MID LINE. NURSING SUP RADHA GEORGE AND PER RADHA WILL CALL MIDLINE NURSE FOR REINSERTION OF MIDLINE. S/P BILATERAL ARMS, LEFT LOWER LEG WOUND DEBRIDEMENT. TOLERATED WELL, CONSENT OBTAINED PRIOR TO DEBRIDEMENT. ALL NEEDS ATTENDED TO. CALL LIGHT WITHIN REACH. WILL ENDORSE TO NEXT SHIFT FOR CONTINUITY OF CARE.
--- NOTE | 2018-12-19 19:30 | NUR ---
MS RN NOTE: PATIENT RESTING IN BED, NO ACUTE DISTRESS. BREATHING EVEN AND UNLABORED, NO SOB NOTED. DRESSING TO WOUNDS IN PLACE. PATIENT WITH NO IV ACCESS, PATIENT HARD STICK AND WAITING FOR MIDLINE NURSE TO BE PLACE. BED LOCKED AND IN LOWEST POSITION, CALL LIGHT IN REACH. WILL CONTINUE TO MONITOR.
[2018-12-19] MEDS: DAKINS QUARTER STRENGTH (0.125%) 480 ML BOTTLE TOP SCH (21:12)
--- NOTE | 2018-12-19 21:30 | NUR ---
MS RN NOTE: PATIENT WITHOUT IV ACCESS, TO HAVE MIDLINE PLACE TONIGHT. MERREM HELD AT THIS TIME TILL IV ACCESS PLACED. WILL CONTINUE TO MONITOR.
[2018-12-20] MEDS ORDERED: MEROPENEM 1 G in IV NS 0.9% 100 ML IV SCH ×2 (01:00→09:00)
--- NOTE | 2018-12-20 01:00 | NUR ---
MS RN NOTE: MIDLINE PLACED TO CALEB #18 WITH GOOD BLOOD RETURN. CALLED ORDER FILLER PHARMACY TO ADJUST TIME FOR MERREM IV. MERREM ADMINISTERED ORDERED. WILL CONTINUE TO MONITOR.
[2018-12-20] MEDS: VANCOMYCIN 1.25 GM in IV D5W 500 ML IV SCH ×2 (05:31→16:23)
[2018-12-20] MEDS: IV NS 0.9% 1,000 ML IV PRN (05:31)
--- NOTE | 2018-12-20 06:15 | NUR ---
MS RN NOTE: PATIENT RESTING IN BED, NO ACUTE DISTRESS. BREATHING EVEN AND UNLABORED, NO SOB NOTED. DRESSING TO WOUNDS IN PLACE. MIDLINE TO CALEB IN PLACE. BED LOCKED AND IN LOWEST POSITION, CALL LIGHT IN REACH. WILL ENDORSE TO DAY NURSE TO CONTINUE WITH PLAN OF CARE,
[2018-12-20 06:29] LABS: BASOPHILS % (AUTO) 0.5 % (0.0-2.0); EOSINOPHILS % (AUTO) 0.8 % (0.0-6.0); HEMATOCRIT 26 % (39-51); HEMOGLOBIN 8.7 g/dL (13.5-17.5); LYMPHOCYTES # (AUTO) 1.5 /CMM (0.8-4.8); LYMPHOCYTES % (AUTO) 16.9 % (20.0-44.0); MEAN CORPUSCULAR HGB CONC 33 g/dl (31.0-36.0); MEAN CORPUSCULAR VOLUME 74 fL (80-96); MONOCYTES % (AUTO) 11.1 % (2.0-12.0); NEUTROPHILS # (AUTO) 6.4 /CMM (1.8-8.9); NEUTROPHILS % (AUTO) 70.7 % (43.0-81.0); PLATELET COUNT (AUTO) 418 /CMM (150-450); RED BLOOD CELL COUNT(AUTO) 3.54 MIL/uL (4.5-6.0); WHITE BLOOD COUNT (AUTO) 9.1 K/uL (4.3-11.0)
[2018-12-20 06:46] LABS: CALCIUM, SERUM 8.1 mg/dL (8.5-10.1); CREATININE 0.9 mg/dL (0.6-1.3); MAGNESIUM 2.1 mg/dL (1.8-2.4); PHOSPHORUS 4.2 mg/dL (2.5-4.9); POTASSIUM 3.4 mmol/L (3.5-5.1)
[2018-12-20 07:12] LABS: BAND % (MANUAL) 1 % (0.0-5.0); EOSINOPHILS % (MANUAL) 1 % (0-4); LYMPHOCYTES % (MANUAL) 19 % (16-48); MONOCYTES % (MANUAL) 9 % (0-11.0); NEUTROPHILS % (MANUAL) 70 (42-76)
--- NOTE | 2018-12-20 07:40 | NUR ---
MS/RN OPENING NOTE PATIENT IN BED IN STABLE CONDITION. A/O X 3. NO SIGNS OF ACUTE DISTRESS. NO COMPLAIN OF PAIN OR DISCOMFORT. ALL NEEDS ATTENDED TO. CALL LIGHT WITHIN REACH. WILL CONTINUE TO MONITOR TO ENSURE SAFETY.
[2018-12-20 08:00] VITALS: BP 100/60
[2018-12-20] MEDS: NICOTINE PATCH (7MG) 7 MG PATCH.TD24 TD SCH (08:29)
[2018-12-20] MEDS: DAKINS QUARTER STRENGTH (0.125%) 480 ML BOTTLE TOP SCH (08:30)
[2018-12-20] MEDS ORDERED: POTASSIUM CHLORIDE 20 MEQ TAB.PRT.SR PO SCH (10:00)
[2018-12-20] MEDS ORDERED: PIPERACILLIN /TAZOBACTAM 3.375 G in IV D5W 50 ML IV ONE (14:30)
--- NOTE | 2018-12-20 15:00 | NUR ---
MS/RN PATIENT NOTED TAKING OFF DRESSINGS EXPLAINED PATIENT RISKS AND BENEFITS, WOUND DRESSING CHANGED ON LEFT UPPER EXTREMITY TOLERATING WELL. ALL NEEDS ATTENDED TO. CALL LIGHT WITHIN REACH. WILL CONTINUE TO MONITOR TO ENSURE SAFETY.
[2018-12-20 16:00] VITALS: BP 142/73
[2018-12-20] MEDS: LACTOBACILLUS RHAMNOSUS GG 1 EACH CAP.SPRINK PO SCH (16:23)
--- NOTE | 2018-12-20 18:30 | NUR ---
MS/RN CLOSING NOTE PATIENT IN BED IN STABLE CONDITION. A/O X 4. NO SIGNS OF ACUTE DISTRESS. NO COMPLAIN OF PAIN OR DISCOMFORT. ALL NEEDS ATTENDED TO. CALL LIGHT WITHIN REACH. WILL ENDORSE TO NEXT SHIFT FOR CONTINUITY OF CARE.
--- NOTE | 2018-12-20 19:49 | NUR ---
RN NOTES RECEIVED PATIENT AWAKE SITTING ON THE SIDE OF HIS BED, NO SIGNS OF ACUTE DISTRESS NOTED, ALERT ORIENTED X 3, ALL SAFETY MEASURES IN PLACED, MOM AT BEDSIDE, PATIENT DENIES ANY PAIN OR DISCOMFORT, ALL NEEDS ATTENDED, WILL MONITOR ACCORDINGLY.
[2018-12-20 20:00] VITALS: BP 137/70
[2018-12-20] MEDS: PIPERACILLIN /TAZOBACTAM 3.375 G in IV D5W 100 ML IV SCH (21:34)
[2018-12-21] MEDS: IV NS 0.9% 1,000 ML IV PRN (03:08)
[2018-12-21 03:47] LABS: BASOPHILS % (AUTO) 0.5 % (0.0-2.0); EOSINOPHILS % (AUTO) 3.1 % (0.0-6.0); HEMATOCRIT 26 % (39-51); HEMOGLOBIN 8.5 g/dL (13.5-17.5); LYMPHOCYTES # (AUTO) 1.8 /CMM (0.8-4.8); LYMPHOCYTES % (AUTO) 25.9 % (20.0-44.0); MEAN CORPUSCULAR HGB CONC 32 g/dl (31.0-36.0); MEAN CORPUSCULAR VOLUME 75 fL (80-96); MONOCYTES # (AUTO) 0.6 /CMM (0.1-1.30); NEUTROPHILS # (AUTO) 4.3 /CMM (1.8-8.9); NEUTROPHILS % (AUTO) 61.5 % (43.0-81.0); PLATELET COUNT (AUTO) 447 /CMM (150-450); RED BLOOD CELL COUNT(AUTO) 3.53 MIL/uL (4.5-6.0)
[2018-12-21] MEDS: PIPERACILLIN /TAZOBACTAM 3.375 G in IV D5W 100 ML IV SCH ×3 (05:45→22:04)
[2018-12-21 05:57] LABS: ALBUMIN 1.9 g/dL (3.4-5.0); BILIRUBIN,TOTAL 0.2 mg/dL (0.2-1.0); CALCIUM, SERUM 7.9 mg/dL (8.5-10.1); CREATININE 0.7 mg/dL (0.6-1.3); MAGNESIUM 1.9 mg/dL (1.8-2.4); PHOSPHORUS 3.9 mg/dL (2.5-4.9); POTASSIUM 4.2 mmol/L (3.5-5.1); TOTAL PROTEIN, SERUM 6.3 g/dL (6.4-8.2)
[2018-12-21] MEDS: VANCOMYCIN 1.25 GM in IV D5W 500 ML IV SCH (06:06)
--- NOTE | 2018-12-21 06:29 | NUR ---
RN NOTES PATIENT ASLEEP AT THIS TIME, ALL DUE MEDS GIVEN, ALL NEEDS ATTENDED AND MET, ABLE TO REST AND SLEEP COMFORTABLY, MIDLINE INTACT AND PATENT, WILL ENDORSE TO AM NURSE FOR CONTINUITY OF CARE.
--- NOTE | 2018-12-21 07:20 | NUR ---
MS/RN NOTE THE PATIENT ALERT AND ORIENTED X4. IN ROOM AIR AND DENIES SOB. RESPIRATION REGULAR AND UNLABORED. DENIES PAIN. CALEB MIDLINE PATENT AND IV ANTIBIOTIC INFUSING PER ORDER AND NO S/S INFILTRATION NOTED. BED LOW AND LOCKED. SIDE RAILS UP X3. CALL LIGHT WITHIN REACH. WILL CONTINUE TO MONITOR.
[2018-12-21 08:07] VITALS: BP 122/56
[2018-12-21] MEDS: NICOTINE PATCH (7MG) 7 MG PATCH.TD24 TD SCH (09:13)
[2018-12-21] MEDS: LACTOBACILLUS RHAMNOSUS GG 1 EACH CAP.SPRINK PO SCH ×2 (09:14→17:33)
[2018-12-21] MEDS: DAKINS QUARTER STRENGTH (0.125%) 480 ML BOTTLE TOP SCH (09:18)
--- NOTE | 2018-12-21 18:48 | NUR ---
MS/RN NOTE THE PATIENT ALERT AND ORIENTED X4. IN ROOM AIR AND SATURATION IS AT 97%. RESPIRATION REGULAR AND UNLABORED. DENIES SOB. DENIES PAIN. THE PATIENT IN NO APPARENT DISTRESS. MIDLINE CALEB PATENT AND NORMAL SALINE INFUSING AT 150ML/HR AND NO S/S INFILTRATION NOTED. BED LOW AND LOCKED. SIDE RAILS UP X3. CALL LIGHT WITHIN REACH. WILL ENDORSE TO PARAMEDIC RN.
--- NOTE | 2018-12-21 19:05 | NUR ---
MS RN NOTE RECEIVED PT IN BED AWAKE AND ABLE TO MAKE NEEDS KNOWN. PT A/O X4. RESPIRATIONS EVEN AND UNLABORED WITH NO S/S OF ACUTE DISTRESS OR SOB NOTED. PT DENIES PAIN AT THIS TIME. CALEB MIDLINE PATENT AND INTACT. SAFETY MEASURES IN PLACE WITH BED IN LOW AND LOCKED POSITIONS WITH SIDE RAILS UP X2. CALL LIGHT WITHIN REACH. WILL CONTINUE TO MONITOR.
[2018-12-21 20:33] VITALS: BP 123/54
[2018-12-22] MEDS: PIPERACILLIN /TAZOBACTAM 3.375 G in IV D5W 100 ML IV SCH ×3 (04:21→20:40)
--- NOTE | 2018-12-22 06:45 | NUR ---
MS RN NOTE PT REFUSED AM LABS X2, AND STATED HE WANTED THEM DONE IN 2HOURS. LAB STATED THAT THEY WILL COME BACK TO DRAW WHEN HE IS READY.
--- NOTE | 2018-12-22 06:53 | NUR ---
MS RN NOTE PT IN BED SLEEPING BUT EASILY AWOKEN VERBALLY OR BY TOUCH. PT A/O X4 AND ABLE TO MAKE NEEDS KNOWN. RESPIRATIONS EVEN AND UNLABORED WITH NO S/S OF ACUTE DISTRESS OR SOB NOTED THROUGHOUT SHIFT. PT DENIES PAIN AT THIS TIME AND THROUGHOUT SHIFT. PT RECEIVED WOUND CARE AND TOLERATED WELL. CALEB MIDLINE PATENT AND INTACT RUNNING ZOSYN @25ML/HR AND NS@150ML/HR. SAFETY MEASURES IN PLACE WITH BED IN LOW AND LOCKED POSITIONS WITH SIDE RAILS UP X2. CALL LIGHT WITHIN REACH. WILL ENDORSE TO ONCOMING NURSE FOR BHUMIKA.
--- NOTE | 2018-12-22 07:22 | NUR ---
MS/RN Patient received Patient received from maintenance supervisor 2nd shift, sleeping soundly. Appears in no distress or discomfort. Dressing to both upper extremities in place, no drainage seen. Call light within reach, will continue to monitor and ensure safety.
[2018-12-22 08:11] VITALS: BP 134/32
[2018-12-22] MEDS: NICOTINE PATCH (7MG) 7 MG PATCH.TD24 TD SCH (08:24)
[2018-12-22] MEDS: LACTOBACILLUS RHAMNOSUS GG 1 EACH CAP.SPRINK PO SCH ×2 (08:24→16:59)
[2018-12-22] MEDS: DAKINS QUARTER STRENGTH (0.125%) 480 ML BOTTLE TOP SCH (08:24)
[2018-12-22 08:36] VITALS: BP 134/62
--- NOTE | 2018-12-22 10:00 | NUR ---
MS/RN S/B Jorje Reddy PETROLEUM TERMINAL PLANT OPERATOR Seen by PETROLEUM TERMINAL PLANT OPERATOR - plan for patient to remain in the hospital on IVAB if agreeable to allow nursing to check belongings as suspicion that patient may have medications within personal property that he is being used. If refuses for belongings check, will be discharged to home with prescription for oral antibiotics.
--- NOTE | 2018-12-22 10:30 | NUR ---
MS/hazard mitigation officer update Mother at bedside and updated as to plan of care for patient. In agreement and stating that she will talk with her son and ensure that belongings are inventoried. Jorje Reddy NP and Malia Cherry both contacted as mother requesting that son be placed in a drug rehab and be started on methadone.
[2018-12-22 11:31] LABS: BASOPHILS % (AUTO) 0.5 % (0.0-2.0); EOSINOPHILS % (AUTO) 2.4 % (0.0-6.0); HEMATOCRIT 30 % (39-51); HEMOGLOBIN 9.8 g/dL (13.5-17.5); LYMPHOCYTES # (AUTO) 1.2 /CMM (0.8-4.8); LYMPHOCYTES % (AUTO) 19.4 % (20.0-44.0); MEAN CORPUSCULAR HGB CONC 32 g/dl (31.0-36.0); MEAN CORPUSCULAR VOLUME 74 fL (80-96); MONOCYTES # (AUTO) 0.3 /CMM (0.1-1.30); MONOCYTES % (AUTO) 4.7 % (2.0-12.0); NEUTROPHILS # (AUTO) 4.6 /CMM (1.8-8.9); PLATELET COUNT (AUTO) 560 /CMM (150-450); RED BLOOD CELL COUNT(AUTO) 4.08 MIL/uL (4.5-6.0); WHITE BLOOD COUNT (AUTO) 6.3 K/uL (4.3-11.0)
[2018-12-22 11:38] LABS: CALCIUM, SERUM 8.6 mg/dL (8.5-10.1); CREATININE 0.8 mg/dL (0.6-1.3); POTASSIUM 4.2 mmol/L (3.5-5.1)
[2018-12-22] MEDS: IV NS 0.9% 1,000 ML IV PRN (12:33)
[2018-12-22] MEDS ORDERED: LORAZEPAM INJ 2 MG/ML VIAL IV PRN (13:00)
--- NOTE | 2018-12-22 13:00 | NUR ---
MS/customer care assistant All wounds redressed as ordered.
[2018-12-22] MEDS: HYDROMORPHONE 1 MG/1 ML DISP.SYRIN IV PRN (13:16)
--- NOTE | 2018-12-22 13:58 | NUR ---
MS/RN Belongings Patient's belongings inventoried, now only has clothes, shoes and cell phone at bedside, everything else removed by mother. Patient aware of this and is in agreement.
--- NOTE | 2018-12-22 14:01 | NUR ---
MS/RN Labs Patient finally agreeable to blood draw: -WBC 6.3 H&H 9.8/30
[2018-12-22 15:59] VITALS: BP 143/68
[2018-12-22 16:02] VITALS: BP 143/68
[2018-12-22] MEDS ORDERED: METHADONE HCL 10 MG TABLET PO SCH (17:00)
--- NOTE | 2018-12-22 17:00 | NUR ---
MS/RN S/B Dr Jim Seen by Dr Jim - patient started on methadone 20mg BID.
--- NOTE | 2018-12-22 18:55 | NUR ---
MS/RN End note Patient remains in stable condition. Dressings dry and intact, no oozing noted. Methadone administered as ordered, no further complaints of any pain. All personal belongings removed by mother earlier this afternoon. Patient does wonder around the unit as is a risk of leaving floor unaccompanied. Safety measures in place, will endorse to boiler testing technician.
--- NOTE | 2018-12-22 19:54 | NUR ---
RN MS OPENING NOTES RECEIVED BEDSIDE REPORT, PT SITTING UP IN BED, AWAKE ALERT ORIENTED X4, BREATHING EVEN AND UNLABORED ON ROOM AIR, NO SOB NOTED. CALEB MIDLINE HL PATENT AND FLUSHING. NO COMPLAINT OF PAIN OR DISCOMFORT AT THIS TIME, BED IN LOWEST LOCKED POSITION, CALL LIGHT WITHIN REACH AT ALL TIMES, WILL CONTINUE TO MONITOR FREQUENTLY.
[2018-12-22 20:00] VITALS: BP 148/92
[2018-12-23] MEDS: HYDROMORPHONE 1 MG/1 ML DISP.SYRIN IV PRN (00:13)
[2018-12-23] MEDS: PIPERACILLIN /TAZOBACTAM 3.375 G in IV D5W 100 ML IV SCH (04:33)
--- NOTE | 2018-12-23 05:54 | NUR ---
PT FOUND WITH NEEDLE UNDER BED, PT REFUSED TO HAND OVER OTHER NEEDLES IN BELONGING, PT WISHED TO GO AMA. MANAGER ANIMATION TANDEM MILL STICKER PAGED, SHE OK'ED PT AMA DISCHARGE. HOMELESS WAIVER SIGNED, AMA FORMED AND BELONGINGS FORMED SIGNED. PRESCRIPTION OF AUGMENTIN GIVEN. MIDLINE REMOVED.
--- NOTE | 2018-12-23 06:04 | NUR ---
PT ESCORTED OUT BY SECURITY
== END 2018-12-23 06:00 | disposition left against medical advice (07) | DRG 710 ==
LOC: ER 01:32 → MEDSG2 06:06 → MED 12-21 16:13
PROVIDERS: ADMIT Hospitalist; ATTEND Hospitalist
PROC: 0KB80ZZ Excision of Left Upper Arm Muscle, Open Approach (ICD-10-PCS; principal; 2018-12-19)
PROC: 0JBH0ZZ Excision of Left Lower Arm Subcutaneous Tissue and Fascia, Open Approach (ICD-10-PCS; principal; 2018-12-19)
PROC: 0JBN0ZZ Excision of Right Lower Leg Subcutaneous Tissue and Fascia, Open Approach (ICD-10-PCS; principal; 2018-12-19)
PROC: 05H533Z Insertion of Infusion Device into Right Subclavian Vein, Percutaneous Approach (ICD-10-PCS; principal; 2018-12-19)
PROC: 0JBP0ZZ Excision of Left Lower Leg Subcutaneous Tissue and Fascia, Open Approach (ICD-10-PCS; principal; 2018-12-19)
PROC: 05H533Z Insertion of Infusion Device into Right Subclavian Vein, Percutaneous Approach (ICD-10-PCS; 2018-12-20)
DX: A41.9 Sepsis, unspecified organism (principal); N17.0 Acute kidney failure with tubular necrosis; L02.415 Cutaneous abscess of right lower limb; L03.115 Cellulitis of right lower limb; E87.1 Hypo-osmolality and hyponatremia; L02.416 Cutaneous abscess of left lower limb; L03.116 Cellulitis of left lower limb; E87.6 Hypokalemia; L03.114 Cellulitis of left upper limb; L03.113 Cellulitis of right upper limb; F17.210 Nicotine dependence, cigarettes, uncomplicated; L02.414 Cutaneous abscess of left upper limb; L02.413 Cutaneous abscess of right upper limb; F10.10 Alcohol abuse, uncomplicated; F19.10 Other psychoactive substance abuse, uncomplicated
CPT/HCPCS: 36415; 36569; 80048-TC; 80053-TC; 80061-TC; 80074; 80202-TC; 83605-TC; 83735-TC; 84100-TC; 85025-TC; 87040-TC; 87070-TC; 87081-TC; 87806; 93971-TC; A4216; A6402; A6403; A6407; G0378; J1170; J2185; J2543; J3370; J3490; J7030; J7042; J7060

== ENCOUNTER 2019-04-05 13:06 | Emergency (ER) | payer SELFPAY ==
[~2019-04-05] VITALS: Ht 185.4 cm; Wt 85.7 kg
--- NOTE | 2019-04-05 13:15 | NUR ---
patient came in to the ER c/o abscess on the upper and lower extremities. On room air, breathing evenly and unlabored. Kept comfortable, will continue to monitor accordingly.
[2019-04-05] MEDS ORDERED: IBUPROFEN 600 MG TABLET PO ONE ×2 (13:30→13:33)
[2019-04-05] MEDS ORDERED: CEFTRIAXONE 1 G VIAL IM ONE (13:30)
[2019-04-05] MEDS ORDERED: WATER FOR INJECTION,STERILE 0 ML ONE (13:32)
[2019-04-05] MEDS ORDERED: CEFTRIAXONE 1 G VIAL ONE (13:33)
[2019-04-05] MEDS ORDERED: LIDOCAINE /MPF 1% VIAL 5 ML VIAL ONE (13:35)
[2019-04-05 14:08] VITALS: BP 128/88
--- NOTE | 2019-04-05 14:09 | NUR ---
Patient discharged to home in stable condition. Written and verbal after care instructions given. Patient verbalizes understanding of instruction.
== END 2019-04-05 14:09 | disposition home or self-care (01) ==
LOC: ER 13:06
DX: F15.10 Other stimulant abuse, uncomplicated (principal); F11.10 Opioid abuse, uncomplicated; L03.114 Cellulitis of left upper limb; L03.113 Cellulitis of right upper limb; L02.414 Cutaneous abscess of left upper limb; L02.413 Cutaneous abscess of right upper limb; F17.200 Nicotine dependence, unspecified, uncomplicated
CPT/HCPCS: 96372; 99283; J0696; J3490; J7030

== ENCOUNTER 2019-04-22 16:39 | Emergency (ER) | payer SELFPAY ==
[~2019-04-22] VITALS: Ht 185.4 cm; Wt 93.0 kg
[2019-04-22] MEDS ORDERED: BENZTROPINE MESYLATE (2MG/2ML) 2 MG/2 ML AMPUL ONE (16:45)
[2019-04-22] MEDS ORDERED: LORAZEPAM INJ 2 MG/ML VIAL ONE (16:45)
[2019-04-22] MEDS ORDERED: HALOPERIDOL LACTATE INJ 5 MG/ML VIAL ONE (16:45)
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
--- NOTE | 2019-04-22 16:50 | NUR ---
PT IS MORE CALM AND COOPERATIVE, TAKEN TO CT AT THIS TIME
[2019-04-22] MEDS ORDERED: HALOPERIDOL LACTATE INJ 5 MG/ML VIAL IM ONE (17:00)
[2019-04-22] MEDS ORDERED: BENZTROPINE MESYLATE (2MG/2ML) 2 MG/2 ML AMPUL IM ONE (17:00)
[2019-04-22] MEDS ORDERED: LORAZEPAM INJ 2 MG/ML VIAL IM ONE (17:00)
[2019-04-22] MEDS ORDERED: IV NS 0.9% 1,000 ML BAG IV ONE ×2 (17:00→19:30)
[2019-04-22 17:03] LABS: APPEARANCE,URINE Cloudy (CLEAR); BILIRUBIN,URINE SMALL (NEGATIVE); BLOOD, URINE Trace-intact Ery/uL (NEGATIVE); COLOR,URINE Yellow (YELLOW); KETONES,URINE Negative (NEGATIVE); LEUKOCYTE ESTERASE ,URINE Negative (NEGATIVE); NITRITE, URINE Negative (NEGATIVE); PH,URINE 5.5 (5.0-8.0); PROTEIN,URINE 100 mg/dl (NEGATIVE); UGLUCOSE Negative (NEGATIVE); UROBILINOGEN,URINE 0.2 EU/dL (0.2)
[2019-04-22 17:24] LABS: BASOPHILS # (AUTO) 0.1 /CMM (0.0-0.2); BASOPHILS % (AUTO) 0.3 % (0.0-2.0); EOSINOPHILS % (AUTO) 0.1 % (0.0-6.0); HEMATOCRIT 38 % (39-51); HEMOGLOBIN 11.8 g/dL (13.5-17.5); LYMPHOCYTES # (AUTO) 0.8 /CMM (0.8-4.8); LYMPHOCYTES % (AUTO) 3.3 % (20.0-44.0); MEAN CORPUSCULAR HGB CONC 31 g/dl (31.0-36.0); MEAN CORPUSCULAR VOLUME 82 fL (80-96); MONOCYTES # (AUTO) 1.1 /CMM (0.1-1.30); MONOCYTES % (AUTO) 4.5 % (2.0-12.0); NEUTROPHILS # (AUTO) 23.2 /CMM (1.8-8.9); NEUTROPHILS % (AUTO) 91.8 % (43.0-81.0); PLATELET COUNT (AUTO) 462 /CMM (150-450); RED BLOOD CELL COUNT(AUTO) 4.67 MIL/uL (4.5-6.0); WHITE BLOOD COUNT (AUTO) 25.2 K/uL (4.3-11.0)
[2019-04-22 17:48] LABS: ALANINE AMINOTRANSFERASE 38 U/L (12-78); ALBUMIN 3.7 g/dL (3.4-5.0); ALKALINE PHOSPHATASE 93 U/L (46-116); ASPARTATE AMINOTRANSFERASE 38 U/L (15-37); BILIRUBIN,DIRECT 0.1 mg/dL (0.0-0.2); BILIRUBIN,TOTAL 0.4 mg/dL (0.2-1.0); CALCIUM, SERUM 9.2 mg/dL (8.5-10.1); CARBON DIOXIDE 13 mmol/L (21-32); CHLORIDE 111 mmol/L (98-107); CREATININE 1.6 mg/dL (0.6-1.3); GLUCOSE 156 mg/dL (74-106); POTASSIUM 3.2 mmol/L (3.5-5.1); SALICYLATE 3.2 mg/dL (2.8-20.0); SODIUM SERUM 150 mmol/L (136-145); TOTAL PROTEIN, SERUM 7.5 g/dL (6.4-8.2); UREA NITROGEN, BLOOD 15 mg/dL (7-18)
[2019-04-22 17:52] LABS: ACETAMINOPHEN < 5 ug/ml (10-30); ALCOHOL, BLOOD < 3 mg/dL (0-0)
[2019-04-22 18:29] LABS: BACTERIA,URINE Few /HPF (None Seen); RBC,URINE 2-3/HPF /HPF (0-2); SQUAMOUS EPITHELIAL CELL,UR Few /HPF (None Seen); WBC,URINE 0-2 /HPF (0-3)
[2019-04-22 18:30] LABS: MUCUS,URINE Many /LPF (None Seen); URINE AMORPHOUS URATE Moderate /HPF (None Seen)
--- NOTE | 2019-04-22 19:11 | NUR ---
REPORT GIVEN TO JOB HORN FOR BHUMIKA
[2019-04-22 20:27] LABS: POTASSIUM 3.3 mmol/L (3.5-5.1)
--- NOTE | 2019-04-22 20:37 | NUR ---
PT RESTING COMFORTABLY IN BED. EASILY AROUSABLE. VITAL SIGNS STABLE. WILL CONTINUE TO MONITOR
--- NOTE | 2019-04-23 01:42 | NUR ---
PT RESTING COMFORTABLY IN BED. EASILY AROUSABLE. VITAL SIGNS STABLE. WILL CONTINUE TO MONITOR.
--- NOTE | 2019-04-23 04:43 | NUR ---
PT RESTING COMFORTABLY IN BED. EASILY AROUSABLE. VITAL SIGNS STABLE. WILL CONTINUE TO MONITOR
--- NOTE | 2019-04-23 05:29 | NUR ---
IV removed. Catheter intact and site benign. Pressure and 4x4 applied to site. No bleeding noted. Patient discharged to home in stable condition. Written and verbal after care instructions given. Patient verbalizes understanding of instruction.
[2019-04-23 05:30] VITALS: BP 120/82
== END 2019-04-23 05:31 | disposition home or self-care (01) ==
LOC: ER 16:49
DX: T44.991A Poisoning by other drug primarily affecting the autonomic nervous system, accidental (unintentional), initial encounter (principal); F15.10 Other stimulant abuse, uncomplicated; E86.0 Dehydration; R45.1 Restlessness and agitation; R41.82 Altered mental status, unspecified; F19.10 Other psychoactive substance abuse, uncomplicated; F17.200 Nicotine dependence, unspecified, uncomplicated; R00.0 Tachycardia, unspecified; F11.10 Opioid abuse, uncomplicated; Y92.89 Other specified places as the place of occurrence of the external cause
CPT/HCPCS: 36415; 70450; 80048 ×2; 80076; 80305; 80307; 80329; 81001; 82550 ×2; 85025; 93005; 96360; 96361; 96372 ×3; 99284; G0480; J0515; J1630; J2060; J7030; 81000-TC

== ENCOUNTER 2019-05-15 09:26 | Emergency (ER) | payer SELFPAY ==
[~2019-05-15] VITALS: Ht 185.4 cm; Wt 92.1 kg
--- NOTE | 2019-05-15 09:28 | NUR ---
PT BIB [facility], TOLD BY-STANDER THAT HE USED [facility] LAST NIGHT AND WANTED TO BE CHECKED, PT IS AAOX2, NOT IN RESPIRATORY DISTRESS, HOOKED TO MONITOR, KEPT RESTED AND COMFORTABLE, WILL CONTINUE TO MONITOR.
--- NOTE | 2019-05-15 09:35 | NUR ---
SEEN AND EXAMINED BY .
--- NOTE | 2019-05-15 11:15 | NUR ---
PT IS ASLEEP AT BED, NOT IN RESPIRATORY DISTRESS, KEPT RESTED AND COMFORTABLE, WILL CONTINUE TO MONITOR.
[2019-05-15 12:21] VITALS: BP 122/81
--- NOTE | 2019-05-15 12:21 | NUR ---
Patient discharged to home in stable condition. Written and verbal after care instructions given. Patient verbalizes understanding of instruction.
== END 2019-05-15 12:23 | disposition home or self-care (01) ==
LOC: ER 09:28
DX: F11.10 Opioid abuse, uncomplicated (principal); F19.10 Other psychoactive substance abuse, uncomplicated; F17.200 Nicotine dependence, unspecified, uncomplicated

== ENCOUNTER 2019-05-24 15:14 | Emergency (ER) | payer SELFPAY ==
[~2019-05-24] VITALS: Ht 185.4 cm; Wt 86.2 kg
--- NOTE | 2019-05-24 15:25 | NUR ---
CAME IN FOR R FRONTAL HEAD LACERATION. PER PT "I FELL BACKWARDS AT 10 FLIGHT OF STAIRS". ALSO C/O RIB PAIN AND BACK PAIN. -N/V/D. -BLURRY VISION. TO ER BED 14, HOOKED TO MONITOR, CHANGED TO GOWN, AWAITING MD PASCAL.
--- NOTE | 2019-05-24 15:26 | NUR ---
DR GARCIA AT BEDSIDE
[2019-05-24] MEDS ORDERED: LIDOCAINE HCL/PF 1% 30 ML VIAL TP ONE (15:30)
[2019-05-24] MEDS ORDERED: LIDOCAINE HCL/MPF 1% 30 ML VIAL IJ ONE (15:52)
--- NOTE | 2019-05-24 16:22 | NUR ---
DR GARCIA AT BEDSIDE FOR BEN.
[2019-05-24] MEDS ORDERED: LEVETIRACETAM (500MG) 1,000 MG in IV NS 0.9% 100 ML IV STA (16:27)
--- NOTE | 2019-05-24 16:30 | NUR ---
6 BEN ON R FRONTAL HEAD LACERATION
[2019-05-24] MEDS ORDERED: LEVETIRACETAM (500MG) 500 MG/5 ML VIAL IV ONE (16:32)
[2019-05-24 16:48] LABS: BASOPHILS % (AUTO) 0.2 % (0.0-2.0); EOSINOPHILS % (AUTO) 0.3 % (0.0-6.0); HEMATOCRIT 33 % (39-51); HEMOGLOBIN 10.6 g/dL (13.5-17.5); LYMPHOCYTES # (AUTO) 1.2 /CMM (0.8-4.8); LYMPHOCYTES % (AUTO) 12.8 % (20.0-44.0); MEAN CORPUSCULAR HGB CONC 32 g/dl (31.0-36.0); MEAN CORPUSCULAR VOLUME 81 fL (80-96); MONOCYTES # (AUTO) 0.9 /CMM (0.1-1.30); MONOCYTES % (AUTO) 9.3 % (2.0-12.0); NEUTROPHILS # (AUTO) 7.1 /CMM (1.8-8.9); NEUTROPHILS % (AUTO) 77.4 % (43.0-81.0); PLATELET COUNT (AUTO) 347 /CMM (150-450); RED BLOOD CELL COUNT(AUTO) 4.07 MIL/uL (4.5-6.0); WHITE BLOOD COUNT (AUTO) 9.2 K/uL (4.3-11.0)
[2019-05-24 16:57] LABS: CALCIUM, SERUM 8.2 mg/dL (8.5-10.1); CREATININE 0.9 mg/dL (0.6-1.3); POTASSIUM 3.9 mmol/L (3.5-5.1)
[2019-05-24] MEDS ORDERED: VANCOMYCIN 1 GM in IV D5W 250 ML IV SCH (17:00)
[2019-05-24] MEDS ORDERED: PIPERACILLIN /TAZOBACTAM 3.375 G in IV D5W 50 ML IV ONE (17:00)
[2019-05-24 17:03] LABS: BILIRUBIN,TOTAL 0.6 mg/dL (0.2-1.0)
[2019-05-24 17:13] LABS: APPEARANCE,URINE Clear (CLEAR); BILIRUBIN,URINE Negative (NEGATIVE); BLOOD, URINE Negative Ery/uL (NEGATIVE); COLOR,URINE Yellow (YELLOW); KETONES,URINE Negative (NEGATIVE); LEUKOCYTE ESTERASE ,URINE Negative (NEGATIVE); NITRITE, URINE Negative (NEGATIVE); PH,URINE 6.5 (5.0-8.0); PROTEIN,URINE Negative (NEGATIVE); UGLUCOSE 100 MG/DL mg/dL (NEGATIVE); UROBILINOGEN,URINE 0.2 EU/dL (0.2)
--- NOTE | 2019-05-24 17:35 | NUR ---
TRANSFER INFO PT WILL GO TO [facility] DIRECT ADMIT TO ROOM 4400, ACCEPTED BY DR GROSS, RN FOR REPORT [phone], [facility] [address] TRIP#[id number] Addendum: 05/24/19 at 2002 by DAVID PT WILL GO TO ROOM 4405 RN FOR REPORT [phone] EXT 4400, TRANSFER CENTER [phone]
[2019-05-24 19:53] VITALS: BP 105/81
--- NOTE | 2019-05-24 20:13 | NUR ---
REPORT GIVEN TO GRACE HORN OF [facility] ([facility]) [phone]
--- NOTE | 2019-05-24 20:30 | NUR ---
PATIRNT C/O 06/18 HEADACHE, MADE DR GARCIA AWARE, RECEIVED VERBAL ORDER OF DECARDON 10MG IVP AND TYLENOL 650MG PO. CARRIED OUT
[2019-05-24] MEDS ORDERED: DEXAMETHASONE SOD PHOSPHATE 10 MG/ML VIAL ONE (20:32)
[2019-05-24] MEDS ORDERED: ACETAMINOPHEN 325 MG TABLET ONE (20:32)
--- NOTE | 2019-05-24 20:44 | NUR ---
Patient picked up by [facility] in stable condition.Patient will be transferred to [facility] for higher level of care.
[2019-05-24] MEDS ORDERED: ACETAMINOPHEN 325 MG TABLET PO ONE (21:00)
[2019-05-24] MEDS ORDERED: DEXAMETHASONE SOD PHOSPHATE 10 MG/ML VIAL IV ONE (21:00)
== END 2019-05-24 20:47 | disposition short-term general hospital (02) ==
LOC: ER 15:15
DX: S02.0XXA Fracture of vault of skull, initial encounter for closed fracture (principal); S01.01XA Laceration without foreign body of scalp, initial encounter; S06.5X0A Traumatic subdural hemorrhage without loss of consciousness, initial encounter; S09.8XXA Other specified injuries of head, initial encounter; R51 Headache; D64.9 Anemia, unspecified; E88.09 Other disorders of plasma-protein metabolism, not elsewhere classified; F11.10 Opioid abuse, uncomplicated; F15.10 Other stimulant abuse, uncomplicated; F19.10 Other psychoactive substance abuse, uncomplicated; F17.200 Nicotine dependence, unspecified, uncomplicated; Z60.2 Problems related to living alone; W01.0XXA Fall on same level from slipping, tripping and stumbling without subsequent striking against object, initial encounter; Y93.01 Activity, walking, marching and hiking; Y92.89 Other specified places as the place of occurrence of the external cause; Y99.8 Other external cause status
CPT/HCPCS: 12002; 36415; 70450; 71045; 72125; 80053; 80305; 81001; 83690; 85025; 85610; 85730; 96365; 96367; 96375; 99291; A6403 ×2; J1100; J1953; J2543; J3490 ×2; J7030; J7060; 81000-TC; J3370

== ENCOUNTER 2019-06-25 15:20 | Emergency (ER) | payer SELFPAY ==
[~2019-06-25] VITALS: Ht 185.4 cm; Wt 75.3 kg
--- NOTE | 2019-06-25 15:40 | NUR ---
PT BIB SELF FOR A SUTURE REMOVAL. PT HAS SUTURE PERFORMED AT [facility] ON . PT ADMITTED TO RECENTLY USING HEROIN. NO SOB. VSS. WILL CONTINUE TO MONITOR PT.
[2019-06-25 15:45] VITALS: BP 130/79
== END 2019-06-25 16:53 | disposition home or self-care (01) ==
LOC: ER 15:22
DX: S01.01XD Laceration without foreign body of scalp, subsequent encounter (principal); L97.229 Non-pressure chronic ulcer of left calf with unspecified severity; F19.10 Other psychoactive substance abuse, uncomplicated; F17.200 Nicotine dependence, unspecified, uncomplicated; Z59.0 Homelessness; X58.XXXD Exposure to other specified factors, subsequent encounter

== ENCOUNTER 2019-08-04 18:45 | Emergency (ER) | payer SELFPAY ==
[~2019-08-04] VITALS: Ht 185.4 cm; Wt 82.6 kg
[2019-08-04 19:08] VITALS: BP 140/74
[2019-08-04] MEDS ORDERED: CLINDAMYCIN HCL 150 MG CAPSULE PO ONE ×2 (19:30→19:39)
== END 2019-08-04 19:40 | disposition home or self-care (01) ==
LOC: ER 18:50
DX: F11.10 Opioid abuse, uncomplicated (principal); L03.114 Cellulitis of left upper limb; L97.929 Non-pressure chronic ulcer of unspecified part of left lower leg with unspecified severity; F17.200 Nicotine dependence, unspecified, uncomplicated; Z59.0 Homelessness

== ENCOUNTER 2019-10-21 22:46 | Emergency (ER) | payer OTHER ==
[~2019-10-21] VITALS: Ht 185.4 cm; Wt 79.4 kg
[2019-10-21 22:46] VITALS: BP 139/82
[2019-10-21] MEDS ORDERED: SULFAMETH/TRIMETH 800/160 MG 1 UDTAB TABLET ONE (22:59)
[2019-10-21] MEDS ORDERED: CLINDAMYCIN 900 MG/6 ML VIAL ONE (22:59)
[2019-10-21] MEDS ORDERED: SULFAMETH/TRIMETH 800/160 MG 1 UDTAB TABLET PO ONE (23:00)
[2019-10-21] MEDS ORDERED: CLINDAMYCIN 900 MG/6 ML VIAL IM ONE (23:00)
--- NOTE | 2019-10-21 23:09 | NUR ---
Patient discharged to [facility] in stable condition. Written and verbal after care instructions given. Patient verbalizes understanding of instruction.
== END 2019-10-21 23:09 ==
LOC: ER 22:46
DX: L03.116 Cellulitis of left lower limb (principal); F19.10 Other psychoactive substance abuse, uncomplicated; F10.10 Alcohol abuse, uncomplicated; F17.200 Nicotine dependence, unspecified, uncomplicated; Y90.9 Presence of alcohol in blood, level not specified; Z59.0 Homelessness
CPT/HCPCS: 96372; 99283; J3490